=== PATIENT | male | born 1965 | race Caucasian/White ===

== ENCOUNTER 2018-08-27 12:01 | Emergency (ER) | payer MEDICAID ==
[~2018-08-27] VITALS: Ht 167.6 cm; Wt 76.2 kg
[2018-08-27 12:21] VITALS: BP 137/93; Ht 167.6 cm; Wt 76.2 kg
== END 2018-08-27 13:38 | disposition home or self-care (01) ==
LOC: ED 12:01
DX: S43.401A Unspecified sprain of right shoulder joint, initial encounter (principal); E11.9 Type 2 diabetes mellitus without complications; E78.00 Pure hypercholesterolemia, unspecified; W01.0XXA Fall on same level from slipping, tripping and stumbling without subsequent striking against object, initial encounter; Y93.89 Activity, other specified; Y92.89 Other specified places as the place of occurrence of the external cause; Y99.8 Other external cause status